=== PATIENT | female | born 1985 | race Caucasian/White ===

== ENCOUNTER 2022-07-12 16:49 | Emergency (ER) | payer OTHER ==
[~2022-07-12] VITALS: Ht 157.5 cm; Wt 77.1 kg
[2022-07-12 17:22] VITALS: BP 115/68
== END 2022-07-12 19:38 | disposition home or self-care (01) ==
LOC: ER 16:49
DX: R09.89 Other specified symptoms and signs involving the circulatory and respiratory systems (principal)
CPT/HCPCS: 71045-TC; 74018

== ENCOUNTER 2023-01-27 15:14 | Emergency (ER) | payer OTHER ==
[~2023-01-27] VITALS: Ht 157.5 cm; Wt 74.8 kg
--- NOTE | 2023-01-27 15:56 | NUR ---
BIBS C/O WEAKNESS, FEELING DROWSY FOR THE PAST WEEK. CAME FROM URGENT CARE WAS TOLD TO GET BLOOD TEST TO R/O ANEMIA.
--- NOTE | 2023-01-27 16:26 | NUR ---
[employer] DEVELOPER AT BEDSIDE
[2023-01-27 16:58] LABS: BASOPHILS % (AUTO) 0.2 % (0.0-2.0); EOSINOPHILS % (AUTO) 0.8 % (0.0-6.0); HEMATOCRIT 40 % (33-45); HEMOGLOBIN 13.1 g/dL (11.5-14.8); LYMPHOCYTES # (AUTO) 2.2 K/uL (0.8-4.8); LYMPHOCYTES % (AUTO) 32.1 % (20.0-44.0); MEAN CORPUSCULAR HGB CONC 33 g/dl (31.0-36.0); MEAN CORPUSCULAR VOLUME 90 fL (82-100); MONOCYTES # (AUTO) 0.7 K/uL (0.1-1.30); MONOCYTES % (AUTO) 10.4 % (2.0-12.0); NEUTROPHILS # (AUTO) 3.8 K/uL (1.8-8.9); NEUTROPHILS % (AUTO) 56.5 % (43.0-81.0); PLATELET COUNT (AUTO) 273 K/uL (150-450); RED BLOOD CELL COUNT(AUTO) 4.49 MIL/uL (4.0-5.2); WHITE BLOOD COUNT (AUTO) 6.7 K/uL (4.3-11.0)
[2023-01-27 17:10] LABS: CALCIUM, SERUM 9.1 mg/dL (8.5-10.1); CREATININE 0.7 mg/dL (0.6-1.3); POTASSIUM 3.9 mmol/L (3.5-5.1)
[2023-01-27 17:16] LABS: ALBUMIN 3.4 g/dL (3.4-5.0); BILIRUBIN,DIRECT 0.1 mg/dL (0.0-0.2); BILIRUBIN,TOTAL 0.3 mg/dL (0.2-1.0)
[2023-01-27 17:23] LABS: THYROID STIMULATING HORMONE 0.843 uIU/mL (0.358-3.74)
--- NOTE | 2023-01-27 19:35 | NUR ---
Patient discharged to home in stable condition. Written and verbal after care instructions given. Patient verbalizes understanding of instruction.
[2023-01-27 19:46] VITALS: BP 115/73
== END 2023-01-27 19:35 | disposition home or self-care (01) ==
LOC: ER 15:21
DX: R53.1 Weakness (principal); D64.9 Anemia, unspecified
CPT/HCPCS: 36415; 80048-TC; 80076-TC; 84443-TC; 84702-TC; 85025-TC